=== PATIENT | female | born 1980 | race Caucasian/White ===

== ENCOUNTER 2019-02-14 15:45 | Emergency (ER) | payer OTHER ==
[2019-02-14] MEDS: IBUPROFEN 800 MG TAB PO (16:35)
[2019-02-14] MEDS: LEVONORGESTREL 1.5 MG TABLET PO (17:03)
== END 2019-02-14 17:05 | disposition home or self-care (01) ==
LOC: FTE 17:05
DX: L02.416 Cutaneous abscess of left lower limb (principal)
CPT/HCPCS: 99283; Z7502